=== PATIENT | male | born 1995 | race Caucasian/White ===

== ENCOUNTER 2023-01-19 17:04 | Emergency (ER) | payer SELFPAY ==
[~2023-01-19] VITALS: Ht 180.3 cm; Wt 113.0 kg
[2023-01-19 17:29] VITALS: BP 132/86; O2SAT 100
[2023-01-19] MEDS ORDERED: ACETAMINOPHEN 325MG TABLET PO ONE (17:45)
[2023-01-19 22:27] VITALS: PULSE 100; RESP 20; TEMP 98.4
== END 2023-01-19 22:35 | disposition home or self-care (01) ==
LOC: ER 17:04
DX: R42 Dizziness and giddiness (principal); R41.0 Disorientation, unspecified; R51.9 Headache, unspecified
CPT/HCPCS: 71045; 99284